=== PATIENT | female | born 1995 | race Caucasian/White ===

== ENCOUNTER 2018-07-27 19:47 | Emergency (ER) | payer BC ==
[~2018-07-27] VITALS: Ht 160 cm; Wt 91.4 kg
[2018-07-27 20:32] LABS: BASOPHILS % (AUTO) 0.3 % (0-1); EOSINOPHILS # (AUTO) 0.2 X10'3 (0-0.9); EOSINOPHILS % (AUTO) 1.2 % (0-6); HEMATOCRIT 41.4 % (35.0-45.0); HEMOGLOBIN 13.8 g/dl (12.0-16.0); LYMPHOCYTES # (AUTO) 2.3 X10'3 (1.1-4.8); LYMPHOCYTES % (AUTO) 17.6 % (21-51); MEAN CORPUSCULAR HEMOGLOBIN 28.5 PG (27.0-31.0); MEAN CORPUSCULAR HGB CONC 33.4 g/dL (33.0-36.5); MEAN CORPUSCULAR VOLUME 85.4 FL (78-98); MEAN PLATELET VOLUME 7.6 FL (7.4-10.4); MONOCYTES # (AUTO) 0.9 X10'3 (0-0.9); MONOCYTES % (AUTO) 6.9 % (2-12); NEUTROPHILS # (AUTO) 9.8 X10'3 (1.8-7.7); PLATELET COUNT 432 X10'3 (140-440); RED BLOOD COUNT 4.85 X10'6 (4.20-5.60); RED CELL DISTRIBUTION WIDTH 14.7 % (11.5-14.5); WHITE BLOOD COUNT 13.2 X10'3 (4.5-11.0)
[2018-07-27 20:49] LABS: ALANINE AMINOTRANSFERASE 34 U/L (12-78); ALBUMIN 3.7 G/DL (3.4-5.0); ALBUMIN/GLOBULIN RATIO 0.7 (1.1-1.5); ALKALINE PHOSPHATASE 109 IU/L (46-116); ANION GAP 10 (8-16); ASPARTATE AMINO TRANSFERASE 19 U/L (10-37); BILIRUBIN,TOTAL 0.2 MG/DL (0.1-1.0); BLOOD UREA NITROGEN 11 MG/DL (7-18); BUN/CREATININE RATIO 13.1 (6.6-38.0); CALCIUM 9.2 MG/DL (8.5-10.1); CHLORIDE 103 MMOL/L (99-107); CREATININE 0.84 MG/DL (0.40-0.90); GLUCOSE 86 MG/DL (70-104); POTASSIUM 3.6 MMOL/L (3.5-5.1); SODIUM 138 MMOL/L (135-145); TOTAL CARBON DIOXIDE 24.7 MMOL/L (24-32); TOTAL PROTEIN 8.7 G/DL (6.4-8.2); eGFR 84 ML/MIN
[2018-07-27] MEDS ORDERED: CefTRIAXone/D5W-Rocephin 1gm 50 ML IV ONE (21:00)
[2018-07-27] MEDS ORDERED: HYDROcodone/acetaminophen 10/325mg tab PO ONE (21:00)
[2018-07-27] MEDS ORDERED: ofloxacin 0.3% 5ml otic drops RIGHT EAR SCH (21:55)
[2018-07-27] MEDS ORDERED: CIPR10DR RIGHT EAR (22:08)
[2018-07-27] MEDS ORDERED: HYDR-4383 PO (22:09)
[2018-07-27] MEDS ORDERED: Cipro HC otic suspension 10ML bottle RIGHT EAR SCH (22:10)
[2018-07-27 22:11] VITALS: BP 146/89
[2018-07-27] MEDS ORDERED: morphine 4 MG/ML inj SYRINge IV ONE (22:20)
== END 2018-07-27 22:36 | disposition home or self-care (01) ==
LOC: ER 19:48
DX: H66.91 Otitis media, unspecified, right ear (principal)
CPT/HCPCS: 36415; 80053; 83605; 84145; 85025; 87040; 96365; 96375; 99283; J0696; J2270

== ENCOUNTER 2019-03-28 09:00 | Emergency (ER) | payer BC ==
[~2019-03-28] VITALS: Ht 160 cm; Wt 104.5 kg
[~2019-03-28 09:00] MED LIST: HYDR-4383 PO
[2019-03-28] MEDS ORDERED: dexamethasone sod phosphate 10mg/ml inj IV STA (09:29)
[2019-03-28] MEDS ORDERED: ampicillin/sulbac 3gm/NS 100ml 100 ML IV STA (09:29)
[2019-03-28] MEDS ORDERED: normal saline 1000ML IV soln IVB ONE ×2 (09:30→12:55)
--- NOTE | 2019-03-28 10:20 | NUR ---
PATIENT UNABLE TO VOID
[2019-03-28 10:22] LABS: BASOPHILS # (AUTO) 0.1 X10'3 (0-0.2); BASOPHILS % (AUTO) 0.4 % (0-1); EOSINOPHILS # (AUTO) 0.1 X10'3 (0-0.9); EOSINOPHILS % (AUTO) 0.9 % (0-6); HEMATOCRIT 39.9 % (35.0-45.0); HEMOGLOBIN 13.5 g/dl (12.0-16.0); LYMPHOCYTES # (AUTO) 1.4 X10'3 (1.1-4.8); LYMPHOCYTES % (AUTO) 10.8 % (21-51); MEAN CORPUSCULAR HEMOGLOBIN 28.1 PG (27.0-31.0); MEAN CORPUSCULAR HGB CONC 33.7 g/dL (33.0-36.5); MEAN CORPUSCULAR VOLUME 83.3 FL (78-98); MEAN PLATELET VOLUME 7.8 FL (7.4-10.4); MONOCYTES # (AUTO) 0.7 X10'3 (0-0.9); MONOCYTES % (AUTO) 5.5 % (2-12); NEUTROPHILS # (AUTO) 10.4 X10'3 (1.8-7.7); NEUTROPHILS % (AUTO) 82.4 % (42-75); PLATELET COUNT 391 X10'3 (140-440); RED CELL DISTRIBUTION WIDTH 15.2 % (11.5-14.5); WHITE BLOOD COUNT 12.6 X10'3 (4.5-11.0)
[2019-03-28 10:45] LABS: ALANINE AMINOTRANSFERASE 27 U/L (12-78); ALBUMIN 3.7 G/DL (3.4-5.0); ALBUMIN/GLOBULIN RATIO 0.7 (1.1-1.5); ALKALINE PHOSPHATASE 95 IU/L (46-116); ANION GAP 13 (8-16); ASPARTATE AMINO TRANSFERASE 19 U/L (10-37); BILIRUBIN,TOTAL 0.6 MG/DL (0.1-1.0); BLOOD UREA NITROGEN 8 MG/DL (7-18); BUN/CREATININE RATIO 10.1 (6.6-38.0); CALCIUM 8.9 MG/DL (8.5-10.1); CHLORIDE 104 MMOL/L (99-107); CREATININE 0.79 MG/DL (0.40-0.90); GLUCOSE 84 MG/DL (70-104); POTASSIUM 3.8 MMOL/L (3.5-5.1); SODIUM 139 MMOL/L (135-145); TOTAL CARBON DIOXIDE 22.2 MMOL/L (24-32); TOTAL PROTEIN 9.2 G/DL (6.4-8.2); eGFR 89 ML/MIN
[2019-03-28] MEDS ORDERED: ketorolac trometh. 30mg/ml inj. IV ONE (11:00)
[2019-03-28] MEDS ORDERED: iohexol 300mg/ml 100ml inj. ONE (11:43)
[2019-03-28 11:49] LABS: HCG SERUM QL NEGATIVE
[2019-03-28] MEDS ORDERED: CHLO473M3 PO (12:45)
[2019-03-28] MEDS ORDERED: HYDR-4353 PO (12:45)
[2019-03-28] MEDS ORDERED: CLIN-142 PO (12:45)
--- NOTE | 2019-03-28 15:15 | NUR ---
REPORT TO MISSAEL ARELLANO [facility] AT [facility]; PATIENT IS TRANSFERRING TO ROOM [id number]
[2019-03-28 18:01] VITALS: BP 136/65
== END 2019-03-28 15:55 | disposition short-term general hospital (02) ==
LOC: ER 09:00
DX: K04.7 Periapical abscess without sinus (principal); K02.9 Dental caries, unspecified; K14.0 Glossitis; Z79.899 Other long term (current) drug therapy
CPT/HCPCS: 36415; 70491; 80053; 83605; 84145; 84703; 85025; 87040; 93005; 96365; 96375; 99285; J1100; J1885; J7030; Q9967; 99284; J0295